=== PATIENT | female | born 1975 | race Hispanic/Latino ===

== ENCOUNTER 2019-11-08 04:38 | Emergency (ER) | payer SELFPAY ==
[2019-11-08 07:06] LABS: Alanine Aminotransferase 13 units/L (7-56); Albumin 4.7 g/dL (3.9-5); BUN/Creatinine Ratio 12; Blood Urea Nitrogen 7 mg/dL (7-17); Calcium 9.1 mg/dL (8.4-10.2); Hemolysis Index 14
--- NOTE | 2019-11-08 08:25 | Emergency Department Report ---
ED Abdominal Pain HPI - General Chief Complaint: Abdominal Pain Stated Complaint: ABDOMINAL PAIN, HEMORRHOIDS Time Seen by Provider: 11/08/19 08:02 Source: patient Mode of arrival: Ambulatory Limitations: No Limitations - History of Present Illness Initial Comments: This is a 44-year-old female presents to the emergency room with abdominal cramping for 3 days. Patient states she was peripheral wounds for 1 week and when she Now she had 3-4 beers last night which increased abdominal pain. She also reports painful hemorrhoids. Patient states she felt lightheaded which prompted her to come in. She also reports vomiting. Patient also concern of possibly recurrence of H. pylori. Patient states she had H. pylori at the beginning of the year and symptoms feel similar. She denies diarrhea, fever, chills, weakness, or tarry stools. MD Complaint: abdominal pain Onset/Timin -: week(s) Location: diffuse Radiation: none Migration to: no migration Severity scale (0 -10): 4 Quality: cramping Consistency: intermittent Improves With: nothing Worsens With: bowel movement, vomiting Associated Symptoms: nausea, vomiting. denies: diarrhea, fever, chills, constipation, dysuria, hematemesis, hematochezia, melena, hematuria, anorexia, syncope - Related Data Previous Rx's Medication Instructions Recorded Last Taken Type Hydrocortisone Acetate [Proctocort 30 mg RC BID #14 supp.rect 11/08/19 Unknown Rx SUPPOS] Ondansetron [Zofran Odt] 4 mg PO Q8HR PRN #20 tab.rapdis 11/08/19 Unknown Rx Sulfamethoxazole/Trimethoprim 1 each PO BID #6 tablet 11/08/19 Unknown Rx [Bactrim DS TAB] Allergies Allergy/AdvReac Type Severity Reaction Status Date / Time No Known Allergies Allergy Unverified 11/08/19 04:55 ED Review of Systems ROS: Stated complaint: ABDOMINAL PAIN, HEMORRHOIDS Other details as noted in HPI Constitutional: denies: chills, fever Respiratory: denies: cough, shortness of breath, wheezing Cardiovascular: denies: chest pain, palpitations Gastrointestinal: abdominal pain, nausea, vomiting. denies: diarrhea Genitourinary: denies: urgency, dysuria, discharge Musculoskeletal: denies: back pain, joint swelling, arthralgia Skin: denies: rash, lesions Neurological: denies: headache, weakness, paresthesias Psychiatric: denies: anxiety, depression ED Past Medical Hx - Past Medical History Hx GERD: Yes Additional medical history: h. Pylori, bursa tendonitis - Surgical History Past Surgical History?: No - Social History Smoking Status: Never Smoker Substance Use Type: Alcohol - Medications Home Medications: Home Medications Medication Instructions Recorded Confirmed Last Taken Type Hydrocortisone Acetate [Proctocort 30 mg RC BID #14 supp.rect 11/08/19 Unknown Rx SUPPOS] Ondansetron [Zofran Odt] 4 mg PO Q8HR PRN #20 tab.rapdis 11/08/19 Unknown Rx Sulfamethoxazole/Trimethoprim 1 each PO BID #6 tablet 11/08/19 Unknown Rx [Bactrim DS TAB] ED Physical Exam - General Limitations: No Limitations General appearance: alert, in no apparent distress - Respiratory Respiratory exam: Present: normal lung sounds bilaterally. Absent: respiratory distress - Cardiovascular Cardiovascular Exam: Present: regular rate, normal rhythm. Absent: systolic murmur, diastolic murmur, rubs, gallop - GI/Abdominal GI/Abdominal exam: Present: soft, tenderness (suprapubic TTP), normal bowel sounds. Absent: distended, guarding, rebound, rigid, organomegaly - Rectal Rectal exam: Present: hemorrhoids (external beefy red hemorrhoids) - Back Exam Back exam: Absent: CVA tenderness (R), CVA tenderness (L) - Neurological Exam Neurological exam: Present: alert, oriented X3, normal gait - Psychiatric Psychiatric exam: Present: normal affect, normal mood - Skin Skin exam: Present: warm, dry, intact, normal color. Absent: rash ED Course Vital Signs 11/08/19 11/08/19 04:42 08:38 Temperature 98.4 F 98 F Pulse Rate 114 H 100 H Respiratory 18 16 Rate Blood Pressure 120/79 Blood Pressure 116/74 [Left] O2 Sat by Pulse 97 100 Oximetry ED Medical Decision Making - Lab Data Result diagrams: 11/08/19 05:04 11/08/19 05:04 Lab Results 11/08/19 11/08/19 11/08/19 Range/Units 05:04 05:04 05:49 WBC 6.0 (4.5-11.0) K/mm3 RBC 4.73 (3.65-5.03) M/mm3 Hgb 13.1 (10.1-14.3) gm/dl Hct 40.3 (30.3-42.9) % MCV 85 (79-97) fl MCH 28 (28-32) pg MCHC 33 (30-34) % RDW 16.0 H (13.2-15.2) % Plt Count 295 (140-440) K/mm3 Lymph % (Auto) 34.3 (13.4-35.0) % Simpson % (Auto) 11.5 H (0.0-7.3) % Eos % (Auto) 2.0 (0.0-4.3) % Baso % (Auto) 0.8 (0.0-1.8) % Lymph # 2.1 (1.2-5.4) K/mm3 Simpson # 0.7 (0.0-0.8) K/mm3 Eos # 0.1 (0.0-0.4) K/mm3 Baso # 0.0 (0.0-0.1) K/mm3 Seg Neutrophils % 51.4 (40.0-70.0) % Seg Neutrophils # 3.1 (1.8-7.7) K/mm3 Sodium 146 H (137-145) mmol/L Potassium 3.8 (3.6-5.0) mmol/L Chloride 104.7 (98-107) mmol/L Carbon Dioxide 23 (22-30) mmol/L Anion Gap 22 mmol/L BUN 7 (7-17) mg/dL Creatinine 0.6 L (0.7-1.2) mg/dL Estimated GFR > 60 ml/min BUN/Creatinine Ratio 12 % Glucose 102 H (65-100) mg/dL Calcium 9.1 (8.4-10.2) mg/dL Total Bilirubin 0.20 (0.1-1.2) mg/dL AST 17 (5-40) units/L ALT 13 (7-56) units/L Alkaline Phosphatase 67 (35-129) units/L Total Protein 7.9 (6.3-8.2) g/dL Albumin 4.7 (3.9-5) g/dL Albumin/Globulin Ratio 1.5 % Urine Color Yellow (Yellow) Urine Turbidity Slightly cloudy (Clear) Urine pH 5.0 (5.0-7.0) Ur Specific [place] 1.017 (1.003-1.030) Urine Protein <15 mg/dl (Negative) mg/dL Urine Glucose (UA) Negative (Negative) mg/dL Urine Ketones Negative (Negative) mg/dL Urine Blood Sm (Negative) Urine Nitrite Negative (Negative) Ur Reducing Substances 1.017 (Negative) Urine Bilirubin Negative (Negative) Urine Urobilinogen < 0.2 (<2.0) mg/dL Ur Leukocyte Esterase Mod (Negative) Urine WBC (Auto) 16.0 H (0.0-6.0) /HPF Urine RBC (Auto) 3.0 (0.0-6.0) /HPF U Epithel Cells (Auto) 22.0 H (0-13.0) /HPF Urine Bacteria (Auto) 1+ (Negative) /HPF Urine Mucus Few /HPF - Medical Decision Making This is a 44 y.o. female presents with abdominal pain and hemorroids pain for 3 days. Patient was examined by me. Vital signs are stable and patient in no acute distress. Exam beefy re-prolapsed hemorrhoids which improved after pain medication analgesics. Urinalysis positive for acute cystitis. With some mild suprapubic tenderness on exam. All of the labs unremarkable. This time radiographs not indicated. Patient reports feeling better.*Bactrim DS, Proctofoam suppository. Plan discussed with patient to discharge home and treat outpatient. She agrees with ER plan. Patient discharged home in stable condition. Follow up with PCP. Critical care attestation.: If time is entered above; I have spent that time in minutes in the direct care of this critically ill patient, excluding procedure time. ED Disposition Clinical Impression: External hemorrhoids, Suprapubic pain, Gastroenteritis Acute cystitis Qualifiers: Hematuria presence: with hematuria Qualified Code(s): N30.01 - Acute cystitis with hematuria Disposition: TO HOME OR SELFCARE Is pt being admited?: No Condition: Stable Instructions: Urinary Tract Infection in Women (ED), Hemorrhoids (ED), Gastroenteritis (ED) Additional Instructions: Increase fluid intake. Wash hands frequently. Rest. Follow up with Primary Care Provider if symptoms don't resolve. Return to ER if fever, SOB, wheezing, and Nausea or Vomiting. Prescriptions: Sulfamethoxazole/Trimethoprim [Bactrim DS TAB] 1 each PO BID #6 tablet Hydrocortisone Acetate [Proctocort SUPPOS] 30 mg RC BID #14 supp.rect Ondansetron [Zofran Odt] 4 mg PO Q8HR PRN #20 tab.rapdis PRN Reason: Nausea And Vomiting Referrals: [facility] [Outside] - 3-5 Days [facility] [Outside] - 3-5 Days FROYLAN URBAN MD [Staff Physician] - 3-5 Days Forms: Work/School Release Form(ED) Time of Disposition: 11:42
[2019-11-08 08:39] VITALS: BP 116/74
[2019-11-08] MEDS ORDERED: KETOROLAC 30 MG/1 ML INJ IM ONE (08:40)
[2019-11-08 08:43] LABS: Bilirubin,Urine Negative (Negative); Blood,Urine SM (Negative); Color,Urine Yellow (Yellow); Protein,Urine <15 mg/dL mg/dL (Negative)
[2019-11-08 08:44] LABS: Bacteria,Urine 1+ /HPF (Negative); Mucus,Urine Few /HPF; Urobilinogen,Urine < 0.2 mg/dL (<2.0)
[2019-11-08 09:34] LABS: Basophils % (Auto) 0.8 % (0.0-1.8); Eosinophils # (Auto) 0.1 K/mm3 (0.0-0.4); Hematocrit 40.3 % (30.3-42.9); Hemoglobin 13.1 gm/dl (10.1-14.3); Lymphocytes # (Auto) 2.1 K/mm3 (1.2-5.4); Lymphocytes % (Auto) 34.3 % (13.4-35.0); Mean Corpuscular HGB Conc 33 % (30-34); Mean Corpuscular Volume 85 fl (79-97); Monocytes # (Auto) 0.7 K/mm3 (0.0-0.8); Monocytes % (Auto) 11.5 % (0.0-7.3); Platelet Count 295 K/mm3 (140-440); Red Blood Count 4.73 M/mm3 (3.65-5.03)
== END 2019-11-08 11:52 | disposition home or self-care (01) ==
LOC: ED 04:38
DX: N30.00 Acute cystitis without hematuria (principal); K64.4 Residual hemorrhoidal skin tags; K52.9 Noninfective gastroenteritis and colitis, unspecified; K21.9 Gastro-esophageal reflux disease without esophagitis; Z79.899 Other long term (current) drug therapy
CPT/HCPCS: 36415; 80053; 81001; 85025; 87086; 96372; 99283; J1885